=== PATIENT | male | born 1950 | race Hispanic/Latino ===

== ENCOUNTER 2016-12-19 10:53 | Emergency (ER) | payer MEDICARE ==
[2016-12-19 11:54] LABS: Basophils % (Auto) 0.7 % (0.0-1.8); Eosinophils % (Auto) 3.4 % (0.0-4.3); Hematocrit 44.8 % (35.5-45.6); Hemoglobin 14.8 gm/dl (11.8-15.2); Mean Corpuscular HGB Conc 33 % (32-34); Mean Corpuscular Hemoglobin 29 pg (28-32); Mean Corpuscular Volume 86 fl (84-94); Platelet Count 171 K/mm3 (140-440); Red Blood Count 5.19 M/mm3 (3.65-5.03); Red Cell Distribution Width 14.1 % (13.2-15.2); White Blood Count 9.6 K/mm3 (4.5-11.0)
[2016-12-19 12:06] LABS: Anion Gap 17 mmol/L; BUN/Creatinine Ratio 16.66; Blood Urea Nitrogen 15 mg/dL (9-20); Calcium 9.2 mg/dL (8.4-10.2); Carbon Dioxide 29 mmol/L (22-30); Chloride 100.2 mmol/L (98-107); Glucose 152 mg/dL (75-100); Potassium 3.2 mmol/L (3.6-5.0); Sodium 143 mmol/L (137-145)
--- NOTE | 2016-12-19 12:47 | Emergency Department Report ---
ED General Adult HPI - General Chief complaint: High BP Stated complaint: BP HIGH Time Seen by Provider: 12/19/16 11:58 Source: patient Mode of arrival: Ambulatory Limitations: No Limitations - History of Present Illness Initial comments: 66-year-old male presents to the emergency department complaining of elevated blood pressure. Patient states that for the past week he has been having intermittent runny nose and allergy type symptoms. He states he began taking [id number] Claritin-D. He states 2 days ago he began having headache, which he describes as feeling like the top of his head is coming off. He reports his headache is worse when he bends over. He also reports generalized ill feeling. Patient states he looked online and saw that one of the ingredients in Claritin-D is pseudoephedrine so he stopped taking this more than 24 hours ago. He reports his symptoms have persisted and he checked his blood pressure this morning show a systolic blood pressure of 216. Patient states he took his blood pressure medication at approximately 10:15 this morning. He came to emergency department for further evaluation. There are no other complaints. -: Gradual, days(s) (2) Location: head Radiation: non-radiation Severity scale (0 -10): 7 Quality: other (pounding) Consistency: constant Improves with: none Worsens with: none Associated Symptoms: malaise - Related Data Home Medications Medication Instructions Recorded Confirmed Last Taken Carvedilol [Coreg] 12.5 mg PO BID 05/30/15 12/19/16 05/29/15 Lisinopril [Zestril TAB] 40 mg PO QDAY 05/30/15 12/19/16 05/30/15 amLODIPine [Norvasc] 10 mg PO DAILY 05/30/15 12/19/16 Unknown Allergies Allergy/AdvReac Type Severity Reaction Status Date / Time clindamycin Allergy Hives Verified 05/30/15 10:16 ED Review of Systems ROS: Stated complaint: BP HIGH Other details as noted in HPI Comment: All other systems reviewed and negative Constitutional: malaise Neurological: headache ED Past Medical Hx - Past Medical History Previous Medical History?: Yes Hx Hypertension: Yes Hx CVA: No Hx Congestive Heart Failure: No Hx Diabetes: No Hx Deep Vein Thrombosis: No Hx Arthritis: Yes Hx Seizures: No Hx Asthma: No Additional medical history: VENOUS STASIS OF LEGS. CELLULITIS. FIBROID MASS OF LEFT LEG. LYMPHADEMA - Surgical History Past Surgical History?: Yes Hx Pacemaker: No Hx Internal Defibrillator: No Additional Surgical History: FX LEFT HAND/ REDUCTION/ PINS. TONSILLECTOMY. Laser surgery for retinal detachment - Family History Family history: no significant - Social History Smoking Status: Never Smoker Substance Use Type: None - Medications Home Medications: Home Medications Medication Instructions Recorded Confirmed Last Taken Type Carvedilol [Coreg] 12.5 mg PO BID 05/30/15 12/19/16 05/29/15 History Lisinopril [Zestril TAB] 40 mg PO QDAY 05/30/15 12/19/16 05/30/15 History amLODIPine [Norvasc] 10 mg PO DAILY 05/30/15 12/19/16 Unknown History ED Physical Exam - General Limitations: No Limitations General appearance: alert, in no apparent distress - Head Head exam: Present: atraumatic, normocephalic - Eye Eye exam: Present: normal appearance, PERRL, EOMI - ENT ENT exam: Present: normal exam, normal orophraynx, mucous membranes moist - Neck Neck exam: Present: normal inspection, full ROM. Absent: tenderness - Respiratory Respiratory exam: Present: normal lung sounds bilaterally. Absent: respiratory distress - Cardiovascular Cardiovascular Exam: Present: regular rate, normal rhythm, normal heart sounds - GI/Abdominal GI/Abdominal exam: Present: soft, normal bowel sounds. Absent: distended, tenderness - Extremities Exam Extremities exam: Present: normal inspection, full ROM. Absent: tenderness - Back Exam Back exam: Present: normal inspection, full ROM. Absent: tenderness - Neurological Exam Neurological exam: Present: alert, oriented X3. Absent: motor sensory deficit - Skin Skin exam: Present: warm, dry, intact ED Course Vital Signs 12/19/16 12/19/16 12/19/16 11:17 12:15 14:26 Temperature 98.4 F 98 F Pulse Rate 101 H 77 84 Respiratory 20 16 18 Rate Blood Pressure 190/115 184/88 Blood Pressure 180/93 [Right] O2 Sat by Pulse 97 100 96 Oximetry ED Medical Decision Making - Lab Data Result diagrams: 12/19/16 11:33 12/19/16 11:33 - EKG Data -: EKG Interpreted by Me EKG shows normal: sinus rhythm, axis, intervals, ST-T waves Rate: normal - EKG Data When compared to previous EKG there are: previous EKG unavailable Interpretation: no acute changes, other (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 Patient has been observed in the emergency department and his blood pressure has slowly improved. Patient reports his headache is better and would like to go home at this time. Patient will be discharged home to follow up with his primary care physician. - Differential Diagnosis hypertensive crisis, accelerated hypertension Critical care attestation.: If time is entered above; I have spent that time in minutes in the direct care of this critically ill patient, excluding procedure time. ED Disposition Clinical Impression: HTN (hypertension) Qualifiers: Hypertension type: essential hypertension Qualified Code(s): I10 - Essential ( primary) hypertension Disposition: DISCHARGED TO HOME OR SELFCARE Is pt being admited?: No Condition: Stable Instructions: Hypertension (ED) Referrals: PRIMARY CARE, [Referring] - 3-5 Days Time of Disposition: 15:09
[2016-12-19] MEDS ORDERED: CATAPRES PO ONE (14:12)
[2016-12-19 15:20] VITALS: BP 171/89
== END 2016-12-19 15:20 | disposition home or self-care (01) ==
LOC: ED 10:53
DX: I10 Essential (primary) hypertension (principal); M19.90 Unspecified osteoarthritis, unspecified site; Z90.89 Acquired absence of other organs; Z88.1 Allergy status to other antibiotic agents
CPT/HCPCS: 36415; 80048; 85025; 93005; 93010; 99283